=== PATIENT | female | born 1990 | race Caucasian/White ===

== ENCOUNTER 2018-06-08 03:55 | Emergency (ER) | payer BC ==
[~2018-06-08] VITALS: Ht 175.3 cm; Wt 70.5 kg
[~2018-06-08 03:55] MED LIST: FLEXERIL5 MG PO; NO HOME MEDICATIONS; NORCO 325 MG-51 TAB PO
[2018-06-08 04:01] VITALS: TEMP 97.8
[2018-06-08 07:11] VITALS: BP 128/67; PULSE 79
== END 2018-06-08 07:15 | disposition home or self-care (01) ==
LOC: COL.ER 03:55
DX: S00.93XA Contusion of unspecified part of head, initial encounter (principal); S20.219A Contusion of unspecified front wall of thorax, initial encounter; S40.022A Contusion of left upper arm, initial encounter; S40.021A Contusion of right upper arm, initial encounter; Y04.8XXA Assault by other bodily force, initial encounter; Y92.59 Other trade areas as the place of occurrence of the external cause